=== PATIENT | female | born 1990 | race Caucasian/White ===

== ENCOUNTER 2018-08-02 17:36 | Emergency (ER) | payer MEDICAID ==
[~2018-08-02] VITALS: Ht 162.6 cm; Wt 61.4 kg
[2018-08-02 17:39] VITALS: BP 96/57
[2018-08-02] MEDS ORDERED: cetirizine 10mg tablet PO STA (18:28)
[2018-08-02] MEDS ORDERED: acetaminophen 325mg tablet PO ONE (18:30)
[2018-08-02] MEDS ORDERED: CETI10CA PO (18:33)
== END 2018-08-02 18:56 | disposition home or self-care (01) ==
LOC: ER 17:37
DX: J32.9 Chronic sinusitis, unspecified (principal); R42 Dizziness and giddiness; Z79.899 Other long term (current) drug therapy
CPT/HCPCS: 99283

== ENCOUNTER 2020-08-11 13:25 | Emergency (ER) | payer MEDICAID ==
[~2020-08-11] VITALS: Ht 162.6 cm; Wt 48.6 kg
[~2020-08-11 13:25] MED LIST: CETI10CA PO
[2020-08-11 13:34] VITALS: BP 112/73
[2020-08-11] MEDS ORDERED: NAPR-56 PO (13:41)
[2020-08-11] MEDS ORDERED: PENI250T2 PO (13:41)
== END 2020-08-11 13:43 | disposition home or self-care (01) ==
LOC: ER 13:26
DX: K02.9 Dental caries, unspecified (principal); K00.7 Teething syndrome; F17.200 Nicotine dependence, unspecified, uncomplicated; Z79.2 Long term (current) use of antibiotics; Z79.899 Other long term (current) drug therapy
CPT/HCPCS: 99283

== ENCOUNTER 2021-04-16 05:57 | Emergency (ER) | payer MEDICAID ==
[~2021-04-16] VITALS: Ht 162.6 cm; Wt 52.2 kg
[2021-04-16 06:00] VITALS: BP 98/63
[2021-04-16] MEDS ORDERED: normal saline 1000ML IV soln IV ONE (07:20)
[2021-04-16] MEDS ORDERED: piperacillin/tazo 3.375gm/50ml 50 ML IV ONE (07:20)
--- NOTE | 2021-04-16 07:28 | NUR ---
CHAPERONED EDMD AMADA FOR PELVIC EXAM IN FAST TRACK ROOM F. PT THEN ESCORTED BACK TO ER ROOM 3 WITHOUT ISSUE.
[2021-04-16 07:44] LABS: URINE HCG POSITIVE (NEG)
[2021-04-16 07:53] LABS: CLARITY,URINE SLIGHTLY CLOUDY (Clear); COLOR,URINE YELLOW (Yellow); GLUCOSE, URINE NEGATIVE (Neg); KETONES,URINE NEGATIVE (Neg); LEUKOCYTE ESTERASE ,URINE NEGATIVE (Neg); NITRITES, URINE NEGATIVE (Neg); OCCULT BLOOD,URINE TRACE-INTACT (Neg); PH,URINE 7.5 (4.8-8.0); PROTEIN,URINE NEGATIVE (Neg)
[2021-04-16 07:56] LABS: UA COLLECTION TYPE CLN CATCH MIDSTREAM
[2021-04-16 08:24] LABS: AMORPHOUS PHOSPHATES 2+
[2021-04-16 08:26] LABS: MUCUS STRANDS NONE SEEN /LPF (Neg); SQUAMOUS EPITHELIAL CELL,UR MODERATE /LPF (FEW)
[2021-04-16 08:27] LABS: BACTERIA,URINE NONE SEEN /HPF (Neg); RBC,URINE 0-2 /HPF (0-2); WBC,URINE 0-4 /HPF (0-4)
--- NOTE | 2021-04-16 09:02 | NUR ---
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 STATED THAT THIS CIVIL TECHNICIAN WOULD GO TALK TO THE DR TO CHECK ON HER STATUS AND SHE INSISTED ON LEAVING AND THEN WALKED OUT OF THE ROOM AND LEFT FACILITY.
== END 2021-04-16 13:31 | disposition left against medical advice (07) ==
LOC: ER 05:58
DX: O20.0 Threatened abortion (principal); O46.8X9 Other antepartum hemorrhage, unspecified trimester; Z3A.09 9 weeks gestation of pregnancy; Z79.899 Other long term (current) drug therapy
CPT/HCPCS: 36415; 76801; 81001; 81025; 84702; 99284

== ENCOUNTER 2022-03-30 16:08 | Emergency (ER) | payer MEDICAID ==
[~2022-03-30] VITALS: Ht 162.6 cm; Wt 73.0 kg
[2022-03-30 16:22] VITALS: BP 123/75
[2022-03-30] MEDS ORDERED: HYDROcodone/acetaminophen 5mg/325mg tablet PO ONE (17:30)
[2022-03-30] MEDS ORDERED: amox tr/potassium clavulanate 875/125mg TAB PO ONE (17:30)
[2022-03-30] MEDS ORDERED: ondansetron 4mg rapidly disintigrating tab PO ONE (17:30)
[2022-03-30] MEDS ORDERED: IBUP-1984 PO (17:31)
[2022-03-30] MEDS ORDERED: AMOX-580 PO (17:31)
== END 2022-03-30 17:51 | disposition home or self-care (01) ==
LOC: ER 16:09
DX: K04.7 Periapical abscess without sinus (principal); K08.89 Other specified disorders of teeth and supporting structures; K02.9 Dental caries, unspecified; Z79.2 Long term (current) use of antibiotics; Z79.899 Other long term (current) drug therapy
CPT/HCPCS: 99284

== ENCOUNTER 2022-10-21 14:41 | Emergency (ER) | payer MEDICAID ==
[~2022-10-21] VITALS: Ht 162.6 cm; Wt 72.7 kg
[2022-10-21 14:57] VITALS: BP 74/40
--- NOTE | 2022-10-21 15:15 | NUR ---
PT IS PALE AND DIAPHORETIC IN TRIAGE. COMPLAINING OF DIZZINESS. BP 78/40, CONFIRMED WITH MANUAL BP. PT MOVED TO ER BED 14, DR. MONSALVE AND LAY OUT CARPENTER UPDATED.
[2022-10-21] MEDS ORDERED: ondansetron/PF 4mg/2ml inj IV ONE (15:45)
[2022-10-21] MEDS ORDERED: morphine 4 MG/ML inj SYRINge IV PRN (15:45)
[2022-10-21] MEDS ORDERED: normal saline 1000ML IV soln IVB ONE (15:45)
[2022-10-21 15:55] LABS: BASOPHILS % (AUTO) 0.3 % (0-1); EOSINOPHILS # (AUTO) 0.2 X10'3 (0-0.9); EOSINOPHILS % (AUTO) 2.4 % (0-6); HEMOGLOBIN 13.4 g/dl (12.0-16.0); LYMPHOCYTES # (AUTO) 2.7 X10'3 (1.1-4.8); MEAN CORPUSCULAR HEMOGLOBIN 30.6 PG (27.0-31.0); MEAN CORPUSCULAR HGB CONC 32.8 g/dL (33.0-36.5); MEAN CORPUSCULAR VOLUME 93.4 FL (78-98); MEAN PLATELET VOLUME 8.4 FL (7.4-10.4); MONOCYTES # (AUTO) 0.4 X10'3 (0-0.9); MONOCYTES % (AUTO) 3.7 % (2-12); NEUTROPHILS # (AUTO) 6.6 X10'3 (1.8-7.7); NEUTROPHILS % (AUTO) 66.6 % (42-75); PLATELET COUNT 229 X10'3 (140-440); RED BLOOD COUNT 4.39 X10'6 (4.20-5.60); RED CELL DISTRIBUTION WIDTH 14.6 % (11.5-14.5); WHITE BLOOD COUNT 9.9 X10'3 (4.5-11.0)
[2022-10-21] MEDS ORDERED: ketorolac trometh. 30mg/ml inj. IV ONE (16:00)
[2022-10-21 16:06] LABS: ALANINE AMINOTRANSFERASE 20 U/L (12-78); ALBUMIN 3.6 G/DL (3.4-5.0); ALKALINE PHOSPHATASE 104 IU/L (46-116); ANION GAP 11 (8-16); ASPARTATE AMINO TRANSFERASE 21 U/L (10-37); BILIRUBIN,TOTAL 0.4 MG/DL (0.1-1.0); BLOOD UREA NITROGEN 10 MG/DL (7-18); BUN/CREATININE RATIO 10.9 (10.0-20.0); CALCIUM 8.9 MG/DL (8.5-10.1); CHLORIDE 106 MMOL/L (99-107); CREATININE 0.92 MG/DL (0.40-0.90); GLUCOSE 123 MG/DL (70-104); POTASSIUM 4.2 MMOL/L (3.5-5.1); SODIUM 140 MMOL/L (135-145); TOTAL CARBON DIOXIDE 23.5 MMOL/L (24-32); TOTAL PROTEIN 7.1 G/DL (6.4-8.2); eGFR 70 ML/MIN
[2022-10-21] MEDS ORDERED: IBUP-1986 PO (16:28)
[2022-10-21] MEDS ORDERED: HYDR-3972 PO (17:02)
== END 2022-10-21 17:20 | disposition home or self-care (01) ==
LOC: ER 14:42
DX: S42.321A Displaced transverse fracture of shaft of humerus, right arm, initial encounter for closed fracture (principal); S80.811A Abrasion, right lower leg, initial encounter; R42 Dizziness and giddiness; Z79.899 Other long term (current) drug therapy; W01.0XXA Fall on same level from slipping, tripping and stumbling without subsequent striking against object, initial encounter; Y93.89 Activity, other specified; Y92.89 Other specified places as the place of occurrence of the external cause; Y99.8 Other external cause status
CPT/HCPCS: 36415; 73060; 80053; 85025; 96361; 96374; 96375; 99284; J1885; J2405; J7030; 99285; A4565